=== PATIENT | male | born 1945 | race Caucasian/White ===

== ENCOUNTER 2021-11-03 14:50 | Inpatient (IN) | payer MEDICARE ==
[~2021-11-03] VITALS: Ht 170.2 cm; Wt 80.0 kg
[2021-11-03] MEDS ORDERED: METO1TAB32 PO (15:45)
[2021-11-03] MEDS ORDERED: BUSP15TA47 PO (15:45)
[2021-11-03] MEDS ORDERED: IPRA0.00 INH (15:45)
[2021-11-03] MEDS ORDERED: BRIL90TA PO (15:45)
[2021-11-03] MEDS ORDERED: LEVOTAB10 PO (15:45)
[2021-11-03] MEDS ORDERED: FURO40TA2 PO (15:45)
[2021-11-03] MEDS ORDERED: ECOT81TA5 PO (15:45)
[2021-11-03] MEDS ORDERED: ROSU20TA5 PO (15:45)
[2021-11-03] MEDS ORDERED: ACET-683 PO (15:45)
[2021-11-03] MEDS ORDERED: COMBAER6 INH (15:45)
[2021-11-03] MEDS ORDERED: HYDR50TA70 PO (15:45)
[2021-11-03] MEDS ORDERED: ENTR1TAB PO (15:45)
[2021-11-03] MEDS ORDERED: OMEP40CA4 PO (15:45)
[2021-11-03 16:20] LABS: BASO % 0.3 % (0.0-1.0); EOS % 0.2 % (0.0-3.0); HEMATOCRIT 40.6 % (42.0-52.0); HEMOGLOBIN 13.7 g/dl (13.5-17.5); LYMPH # 2.1 10^3/uL (1.5-5.0); LYMPH % 13.7 % (24.0-44.0); MEAN CORPUSCULAR HEMOGLOBIN 32.5 pg (27.0-33.0); MEAN CORPUSCULAR HGB CONC 33.7 g/dl (32.0-36.5); MEAN CORPUSCULAR VOLUME 96.2 fl (80.0-96.0); MONO # 0.9 10^3/uL (0.0-0.8); MONO % 6.1 % (2.0-8.0); NEUTROPHILS % 77.9 % (36.0-66.0); PLATELET COUNT, AUTOMATED 309 10^3/uL (150-450); RED BLOOD COUNT 4.22 10^6/uL (4.30-6.10); WHITE BLOOD COUNT 15.4 10^3/uL (4.0-10.0)
[2021-11-03 16:32] LABS: INR 0.99; PROTHROMBIN TIME 13.5 SECONDS (12.7-14.5)
[2021-11-03 16:33] LABS: PARTIAL THROMBOPLASTIN TIME 30.4 SECONDS (25.9-37.0)
[2021-11-03 16:44] LABS: CK-MB VALUE MASS 1.9 NG/ML (<3.6); MB/CK RELATIVE INDEX 4.52 (< OR =4)
[2021-11-03 16:50] LABS: ALBUMIN 4.1 GM/DL (3.2-5.2); BILIRUBIN,DIRECT 0.2 MG/DL (0.0-0.2); BILIRUBIN,TOTAL 0.8 MG/DL (0.2-1.0); CALCIUM LEVEL 9.6 MG/DL (8.8-10.2); CREATININE FOR GFR 1.96 MG/DL (0.70-1.30); FREE T4 1.58 NG/DL (0.76-1.46); GLOMERULAR FILTRATION RATE 35.5 (>42); POTASSIUM SERUM 3.5 MEQ/L (3.5-5.1); THYROID STIMULATING HORMONE 0.71 uIU/ML (0.358-3.740); TOTAL PROTEIN 7.6 GM/DL (6.4-8.2)
[2021-11-03 20:36] LABS: CK-MB VALUE MASS 1.7 NG/ML (<3.6); MB/CK RELATIVE INDEX 4.15 (< OR =4)
[2021-11-03 21:30] LABS: ABG BASE EXCESS -0.1 (-2.0-2.0); ABG HCO3 23.7 MEQ/L (22.0-26.0); ABG O2 SATURATION 98.8 % (95.0-99.0); ABG PARTIAL PRESSURE CO2 36.1 mmHg (35.0-45.0); ABG PARTIAL PRESSURE O2 145.7 mmHg (75.0-100.0); ABG STANDARD HCO3 24.4 MEQ/L (22.0-26.0); ABG TOTAL CO2 24.8 MEQ/L (23.0-31.0); ABG pH (ARTERIAL) 7.435 UNITS (7.350-7.450)
[2021-11-03] MEDS ORDERED: ALBUTEROL SULFATE 2.5 MG/0.5 ML INH NEB SOLN NEB ONE (21:30)
[2021-11-03] MEDS ORDERED: methylPREDNISolone 125MG 2ML VIAL IV ONE (21:30)
[2021-11-03] MEDS ORDERED: ENTR1TAB7 PO (22:16)
[2021-11-03] MEDS ORDERED: BUDE10.7 INH (22:16)
[2021-11-03 22:23] LABS: RSV AMPLIFICATION NEGATIVE (NEGATIVE)
[2021-11-03] MEDS ORDERED: ALBUTEROL SULFATE 2.5 MG/0.5 ML INH NEB SOLN NEB PRN (23:55)
[2021-11-04] MEDS: DOXYCYCLINE HYCLATE 100MG TABLET PO SCH ×3 (00:22→20:44)
[2021-11-04] MEDS ORDERED: HOME MED LIST COMPLETE! XX SCH (00:55)
[2021-11-04] MEDS ORDERED: GLUCAGON INJ 1MG VIAL SC PRN (01:30)
[2021-11-04] MEDS ORDERED: DEXTROSE 50% 50 ML SYRINGE IV PRN (01:30)
[2021-11-04] MEDS ORDERED: GLUCOSE 4GM CHEW TABLET PO PRN (01:30)
[2021-11-04] MEDS: IPRATROPIUM 0.5MG/ALBUTEROL 2.5MG INH SOL UD 3ML (DUONEB) NEB SCH ×4 (02:00→20:24)
[2021-11-04] MEDS: methylPREDNISolone 40MG 1ML VIAL IV SCH ×3 (05:52→21:31)
[2021-11-04 06:37] LABS: CALCIUM LEVEL 9.4 MG/DL (8.8-10.2); CREATININE FOR GFR 1.76 MG/DL (0.70-1.30); GLOMERULAR FILTRATION RATE 40.2 (>42); MAGNESIUM LEVEL 1.9 MG/DL (1.8-2.4); POTASSIUM SERUM 3.8 MEQ/L (3.5-5.1)
[2021-11-04 08:15] LABS: BASO % 0.2 % (0.0-1.0); HEMATOCRIT 37.1 % (42.0-52.0); HEMOGLOBIN 12.6 g/dl (13.5-17.5); LYMPH # 0.7 10^3/uL (1.5-5.0); LYMPH % 7.6 % (24.0-44.0); MEAN CORPUSCULAR HEMOGLOBIN 33.1 pg (27.0-33.0); MEAN CORPUSCULAR VOLUME 97.4 fl (80.0-96.0); MONO # 0.1 10^3/uL (0.0-0.8); MONO % 0.9 % (2.0-8.0); PLATELET COUNT, AUTOMATED 213 10^3/uL (150-450); RED BLOOD COUNT 3.81 10^6/uL (4.30-6.10); WHITE BLOOD COUNT 8.9 10^3/uL (4.0-10.0)
[2021-11-04 08:48] LABS: CALCIUM LEVEL 9.3 MG/DL (8.8-10.2); CREATININE FOR GFR 1.76 MG/DL (0.70-1.30); GLOMERULAR FILTRATION RATE 40.2 (>42); POTASSIUM SERUM 3.8 MEQ/L (3.5-5.1)
[2021-11-04] MEDS: FUROSEMIDE 40 MG TAB PO SCH (08:57)
[2021-11-04] MEDS: ASPIRIN 81MG ENTERIC TABLET PO SCH (08:57)
[2021-11-04] MEDS: busPIRone 5 MG TAB PO SCH ×2 (08:57→20:43)
[2021-11-04] MEDS: OMEPRAZOLE 20MG CAP PO SCH ×2 (08:58→20:43)
[2021-11-04] MEDS: METOPROLOL SUCC *XL* 25MG TAB (TopROL *XL*) PO SCH (08:58)
[2021-11-04] MEDS: TICAGRELOR 90 MG TABLET (BRILINTA) PO SCH ×2 (08:58→20:44)
[2021-11-04] MEDS: INSULIN LISPRO (NovoLOG) PER UNIT SC SCH ×4 (08:59→20:36)
[2021-11-04] MEDS: ENTRESTO 49-51MG TABLET (SACUBITRIL/VALSARTAN) PO SCH ×2 (13:19→20:44)
[2021-11-04 16:15] VITALS: BP 114/83
[2021-11-04] MEDS: ROSUVASTATIN 10 MG TAB (CRESTOR) PO SCH (20:44)
[2021-11-04 22:00] VITALS: BP 128/62
[2021-11-05] MEDS: IPRATROPIUM 0.5MG/ALBUTEROL 2.5MG INH SOL UD 3ML (DUONEB) NEB SCH ×4 (01:16→19:51)
[2021-11-05] MEDS: hydrOXYzine 50 MG TAB PO PRN ×2 (01:21→22:40)
[2021-11-05] MEDS: methylPREDNISolone 40MG 1ML VIAL IV SCH (05:09)
[2021-11-05 06:00] VITALS: BP 126/65
[2021-11-05 06:06] LABS: BASO % 0.1 % (0.0-1.0); HEMATOCRIT 35.2 % (42.0-52.0); HEMOGLOBIN 11.8 g/dl (13.5-17.5); LYMPH # 1.3 10^3/uL (1.5-5.0); LYMPH % 4.5 % (24.0-44.0); MEAN CORPUSCULAR HEMOGLOBIN 32.3 pg (27.0-33.0); MEAN CORPUSCULAR HGB CONC 33.5 g/dl (32.0-36.5); MEAN CORPUSCULAR VOLUME 96.4 fl (80.0-96.0); MONO # 1.3 10^3/uL (0.0-0.8); MONO % 4.7 % (2.0-8.0); NEUTROPHILS # 25.5 10^3/uL (1.5-8.5); NEUTROPHILS % 89.6 % (36.0-66.0); PLATELET COUNT, AUTOMATED 259 10^3/uL (150-450); RED BLOOD COUNT 3.65 10^6/uL (4.30-6.10); WHITE BLOOD COUNT 28.4 10^3/uL (4.0-10.0)
[2021-11-05 06:33] LABS: CALCIUM LEVEL 9.5 MG/DL (8.8-10.2); CREATININE FOR GFR 1.6 MG/DL (0.70-1.30); GLOMERULAR FILTRATION RATE 44.8 (>42); MAGNESIUM LEVEL 1.7 MG/DL (1.8-2.4); POTASSIUM SERUM 3.3 MEQ/L (3.5-5.1)
[2021-11-05] MEDS ORDERED: ALBUTEROL 90 MCG/ACT 8GM HFA INHALER INH PRN (07:00)
[2021-11-05] MEDS ORDERED: methylPREDNISolone 125MG 2ML VIAL IV PRN (07:01)
[2021-11-05] MEDS ORDERED: diphenhydrAMINE 50MG/ML VIAL (J1200) IV PRN (07:01)
[2021-11-05] MEDS ORDERED: ALBUTEROL SULFATE 2.5 MG/0.5 ML INH NEB SOLN INH PRN (07:01)
[2021-11-05] MEDS ORDERED: EPINEPHrine INJ 1 MG/ML 1ML AMP IM PRN (07:01)
[2021-11-05] MEDS: busPIRone 5 MG TAB PO SCH ×2 (08:07→20:14)
[2021-11-05] MEDS: METOPROLOL SUCC *XL* 25MG TAB (TopROL *XL*) PO SCH (08:08)
[2021-11-05] MEDS: ASPIRIN 81MG ENTERIC TABLET PO SCH (08:09)
[2021-11-05] MEDS: TICAGRELOR 90 MG TABLET (BRILINTA) PO SCH ×2 (08:09→20:14)
[2021-11-05] MEDS: INSULIN LISPRO (NovoLOG) PER UNIT SC SCH ×4 (08:09→21:00)
[2021-11-05] MEDS: DOXYCYCLINE HYCLATE 100MG TABLET PO SCH ×2 (08:09→20:15)
[2021-11-05] MEDS: OMEPRAZOLE 20MG CAP PO SCH ×2 (08:09→20:14)
[2021-11-05] MEDS: FUROSEMIDE 40 MG TAB PO SCH (08:10)
[2021-11-05] MEDS ORDERED: POTASSIUM CHLORIDE 10MEQ SR TABLET PO ONE (08:55)
[2021-11-05] MEDS ORDERED: MAG SULF 1GM/100ML (MAG RUN) 1 GM in IV 1 EA IV ONE (09:00)
[2021-11-05] MEDS: ACETAMINOPHEN 500 MG TAB PO PRN (09:02)
[2021-11-05] MEDS ORDERED: DOXY-350 PO (09:51)
[2021-11-05] MEDS ORDERED: PRED10TA2 PO (09:51)
[2021-11-05 09:55] LABS: INR 1.03; PARTIAL THROMBOPLASTIN TIME 27.7 SECONDS (25.9-37.0); PROTHROMBIN TIME 13.9 SECONDS (12.7-14.5)
[2021-11-05 09:58] LABS: D-DIMER QUANT 806.42 ng/ml (<500)
[2021-11-05] MEDS: ENTRESTO 49-51MG TABLET (SACUBITRIL/VALSARTAN) PO SCH ×2 (10:02→20:14)
[2021-11-05] MEDS: predniSONE 20 MG TAB PO SCH (10:04)
[2021-11-05 10:19] LABS: ALBUMIN 3.8 GM/DL (3.2-5.2); ALT/SGPT 27 U/L (12-78); BILIRUBIN,DIRECT 0.1 MG/DL (0.0-0.2); BILIRUBIN,TOTAL 0.4 MG/DL (0.2-1.0); C REACTIVE PROTEIN QUANTITATIV < 0.30 MG/DL (0.00-0.30); FERRITIN 837 NG/ML (26-388); LDH LACTATE DEHYDROGENASE 285 U/L (87-241); TOTAL PROTEIN 6.9 GM/DL (6.4-8.2)
[2021-11-05] MEDS ORDERED: BEBTELOVIMAB 175MG 2ML VIAL (EUA) IV ONE (12:00)
[2021-11-05] MEDS ORDERED: NS 1,000 ML IV SCH (12:00)
[2021-11-05 13:59] VITALS: BP 124/65
[2021-11-05 14:30] VITALS: BP 117/61
[2021-11-05 15:00] VITALS: BP 110/62
[2021-11-05] MEDS: ROSUVASTATIN 10 MG TAB (CRESTOR) PO SCH (20:14)
[2021-11-05 21:00] VITALS: BP 118/84
[2021-11-05] MEDS ORDERED: NIRMATRELVIR/RITONAVIR (RENAL) CO-PACK (EUA) PO SCH (21:00)
[2021-11-06] MEDS: ACETAMINOPHEN 500 MG TAB PO PRN (00:48)
[2021-11-06] MEDS: IPRATROPIUM 0.5MG/ALBUTEROL 2.5MG INH SOL UD 3ML (DUONEB) NEB SCH (01:17)
[2021-11-06 05:29] VITALS: BP 114/80
[2021-11-06 06:41] LABS: BASO % 0.1 % (0.0-1.0); HEMATOCRIT 34.8 % (42.0-52.0); HEMOGLOBIN 11.5 g/dl (13.5-17.5); LYMPH % 4.2 % (24.0-44.0); MEAN CORPUSCULAR HEMOGLOBIN 32.3 pg (27.0-33.0); MEAN CORPUSCULAR VOLUME 97.8 fl (80.0-96.0); MONO # 1.3 10^3/uL (0.0-0.8); MONO % 5.3 % (2.0-8.0); NEUTROPHILS # 21.5 10^3/uL (1.5-8.5); PLATELET COUNT, AUTOMATED 257 10^3/uL (150-450); RED BLOOD COUNT 3.56 10^6/uL (4.30-6.10); WHITE BLOOD COUNT 24.2 10^3/uL (4.0-10.0)
[2021-11-06 07:11] LABS: CALCIUM LEVEL 9.3 MG/DL (8.8-10.2); CREATININE FOR GFR 1.67 MG/DL (0.70-1.30); GLOMERULAR FILTRATION RATE 42.7 (>42); MAGNESIUM LEVEL 2.1 MG/DL (1.8-2.4)
[2021-11-06] MEDS: ASPIRIN 81MG ENTERIC TABLET PO SCH (08:00)
[2021-11-06] MEDS ORDERED: COMBIVENT RESPIMAT 100-20MCG INHALER 4GM INH SCH (08:00)
[2021-11-06] MEDS: OMEPRAZOLE 20MG CAP PO SCH (08:00)
[2021-11-06] MEDS: ENTRESTO 49-51MG TABLET (SACUBITRIL/VALSARTAN) PO SCH (08:00)
[2021-11-06] MEDS: busPIRone 5 MG TAB PO SCH (08:01)
[2021-11-06] MEDS: FUROSEMIDE 40 MG TAB PO SCH (08:01)
[2021-11-06] MEDS: predniSONE 20 MG TAB PO SCH (08:01)
[2021-11-06 08:03] VITALS: BP 146/88
[2021-11-06] MEDS: METOPROLOL SUCC *XL* 25MG TAB (TopROL *XL*) PO SCH (08:03)
[2021-11-06] MEDS: DOXYCYCLINE HYCLATE 100MG TABLET PO SCH (08:03)
[2021-11-06] MEDS: TICAGRELOR 90 MG TABLET (BRILINTA) PO SCH (08:04)
[2021-11-06] MEDS: INSULIN LISPRO (NovoLOG) PER UNIT SC SCH (08:05)
== END 2021-11-06 12:28 | disposition home health service (06) | DRG 178 ==
LOC: M ED 14:50 → EDBD 14:50 → M ED INP 23:53 → ENRESERV 11-04 15:21 → M MSPAV 11-04 16:07
PROVIDERS: ADMIT Internal Medicine; ATTEND General Practice
DX: U07.1 COVID-19 (principal); J44.1 Chronic obstructive pulmonary disease with (acute) exacerbation; I50.22 Chronic systolic (congestive) heart failure; I13.0 Hypertensive heart and chronic kidney disease with heart failure and stage 1 through stage 4 chronic kidney disease, or unspecified chronic kidney disease; Z86.16 Personal history of COVID-19; Z87.891 Personal history of nicotine dependence; Z79.82 Long term (current) use of aspirin; Z79.899 Other long term (current) drug therapy; Z88.0 Allergy status to penicillin; I25.10 Atherosclerotic heart disease of native coronary artery without angina pectoris; Z95.5 Presence of coronary angioplasty implant and graft; N18.30 Chronic kidney disease, stage 3 unspecified; D72.829 Elevated white blood cell count, unspecified; T38.0X5A Adverse effect of glucocorticoids and synthetic analogues, initial encounter

== ENCOUNTER → 2021-12-25 | Outpatient (CLI) | payer MEDICARE ==
[~2021-12-25] MED LIST: ACET-683 PO; BRIL90TA PO; BUDE10.7 INH; BUSP15TA47 PO; COMBAER6 INH; DOXY-350 PO; ECOT81TA5 PO; ENTR1TAB PO; ENTR1TAB7 PO; FURO40TA2 PO; HYDR50TA70 PO; IPRA0.00 INH; LEVOTAB10 PO; METO1TAB32 PO; OMEP40CA4 PO; PRED10TA2 PO; ROSU20TA5 PO
== END ==
LOC: M RAD 13:27
PROVIDERS: ATTEND Nurse Practitioner Family
DX: R06.00 Dyspnea, unspecified (principal)

== ENCOUNTER → 2022-01-27 | Outpatient (REF) | payer MEDICARE | LOC: M LAB REF 16:44 | PROVIDERS: ATTEND Nurse Practitioner Family | DX: J44.9 Chronic obstructive pulmonary disease, unspecified (principal) ==

== ENCOUNTER → 2022-05-11 | Outpatient (CLI) | payer MEDICARE ==
[~2022-05-11] MED LIST changes: -DOXY-350 PO; +DOXY-444 PO
== END ==
LOC: M PLARAD 09:09
PROVIDERS: ATTEND Nurse Practitioner Family
DX: R91.8 Other nonspecific abnormal finding of lung field (principal)
CPT/HCPCS: 78815; A9552